=== PATIENT | female | born 2000 | race Caucasian/White ===

== ENCOUNTER 2020-02-19 01:13 | Emergency (ER) | payer OTHER, SELFPAY ==
[~2020-02-19] VITALS: Ht 154.9 cm; Wt 56.7 kg
[2020-02-19 01:35] VITALS: BP_SYST 139
--- NOTE | 2020-02-19 01:35 | NUR ---
PT TAKEN OUT TO TENT D/T COMPLAINTS OF BODY ACHES, CHILLS, AND VOMITING SEVERAL TIMES ALL DAY.
--- NOTE | 2020-02-19 01:40 | NUR ---
PT AAO AND AMBULATORY C/O BODY ACHES, CHILLS, AND VOMITING ALL DAY TODAY.
--- NOTE | 2020-02-19 01:55 | NUR ---
Patient to ER bed 7 to gown for evaluation. Side rails up. Report given to NOVEMBER.
--- NOTE | 2020-02-19 02:16 | NUR ---
ER at bedside examining patient.
[2020-02-19] MEDS ORDERED: NACL 0.9% 1,000 ML IV ONE (02:35)
[2020-02-19] MEDS ORDERED: ONDANSETRON HCL 4 MG/2 ML VIAL IVP ONE (02:45)
[2020-02-19] MEDS ORDERED: ONDANSETRON HCL 4 MG/2 ML VIAL ONE (02:55)
[2020-02-19 03:00] LABS: BILIRUBIN,URINE NEGATIVE (NEGATIVE); BLOOD, URINE NEGATIVE (NEGATIVE); CLARITY/URINE CLEAR (CLEAR); COLOR,URINE YELLOW (YELLOW); GLUCOSE,URINE NEGATIVE (NEGATIVE); KETONES,URINE 3+ (NEGATIVE); LEUKOCYTE ESTERASE ,URINE NEGATIVE (NEGATIVE); NITRITE, URINE NEGATIVE (NEGATIVE); PROTEIN URINE 1+ (NEGATIVE); UROBILINOGEN,URINE 0.2 (0.2-1.0)
--- NOTE | 2020-02-19 03:00 | NUR ---
X-ray at bedside.
[2020-02-19 03:22] LABS: BASOPHILS % (AUTO) 0.6 % (0.0-2.0); HEMATOCRIT 42.1 % (36-48); HEMOGLOBIN 14.1 g/dL (12.0-16.0); LYMPHOCYTES # (AUTO) 0.5 K/uL (1.0-5.5); MEAN CORPUSCULAR HEMOGLOBIN 30 pg (27-31); MEAN CORPUSCULAR HGB CONC 34 % (32-36); MEAN CORPUSCULAR VOLUME 90 fL (79.0-98.0); MONOCYTES # (AUTO) 0.3 K/uL (0.0-1.0); MONOCYTES % (AUTO) 4.3 % (1.7-9.3); NEUTROPHILS # (AUTO) 5.3 K/uL (1.8-7.7); NEUTROPHILS % (AUTO) 87.1 % (40.0-70.0); PLATELET COUNT (AUTO) 232 K/uL (130-430); RED BLOOD CELL COUNT(AUTO) 4.67 MIL/uL (4.2-6.2); RED CELL DISTRIBUTION WIDTH 12.7 % (9.0-15.0)
[2020-02-19 03:31] LABS: BACTERIA,URINE MODERATE /HPF (None Seen); RBC,URINE 0-3 /HPF (0-3); WBC,URINE 0-3 /HPF (0-3)
[2020-02-19 03:34] LABS: INR 1.1 (0.8-1.2); PROTHROMBIN TIME 11.1 SECS (9.5-12.5)
[2020-02-19 03:36] LABS: ALBUMIN 4.3 g/dL (3.4-4.8); CALCIUM 9.5 mg/dL (8.4-11.0); CREATININE 0.64 mg/dL (0.55-1.30); POTASSIUM 3.5 mmol/L (3.5-5.1); TOTAL BILIRUBIN 0.6 mg/dL (0.0-1.0)
--- NOTE | 2020-02-19 04:19 | NUR ---
Patient resting quietly. No acute distress noted. Vital signs within normal range.
[2020-02-19 04:59] VITALS: BP_SYST 101
--- NOTE | 2020-02-19 04:59 | NUR ---
Patient given written and verbal discharge instructions and verbalizes understanding. ER MD discussed with patient the results and treatment provided. Patient in stable condition. ID arm band removed. IV catheter removed intact and dressing applied, no active bleeding. Rx of Zofran given. Patient educated on pain management and to follow up with PMD. Pain Scale 0/10. Opportunity for questions provided and answered. Medication side effect fact sheet provided.
== END 2020-02-19 04:59 | disposition home or self-care (01) ==
LOC: SED 01:13
DX: R11.2 Nausea with vomiting, unspecified (principal); Z20.828 Contact with and (suspected) exposure to other viral communicable diseases
CPT/HCPCS: 36415; 71045; 80053; 81000; 81025; 82150; 83605; 83690; 85025; 85610; 86710; 87040; 87086; 96361; 96374; 99284; C9803; J2405; J7030; U0003